=== PATIENT | male | born 2000 | race Hispanic/Latino ===

== ENCOUNTER 2022-07-06 18:16 | Emergency (ER) | payer BC, SELFPAY ==
--- NOTE | 2022-07-06 18:22 | ED.URI ---
HPI - URI/Sore Throat General Chief Complaint: Upper Respiratory Infection Stated Complaint: sore/red throat, pus in throat Time Seen by Provider: 07/06/22 18:37 Source: patient and RN notes reviewed Mode of arrival: ambulatory Limitations: no limitations History of Present Illness HPI Narrative: 21-year-old male presents with concern for sore throat that started on Thursday. He reports when the symptoms started he had a fever and chills. He reports he felt white patches on his throat. He denies runny nose, stuffy nose, headache, stomachache, nasal congestion or rhinorrhea. He has not taken any medications for his symptoms MD elicited complaint: sore throat Related Data Home Medications Medication Instructions Recorded Confirmed No Home Medications 07/06/22 07/06/22 Allergies Allergy/AdvReac Type Severity Reaction Status Date / Time No Known Allergies Allergy Verified 07/06/22 18:19 Review of Systems Review of Systems: CONSTITUTIONAL: Denies malaise, chills, sweats, or fever. EYES: Denies visual changes, redness, or discharge. ENT: Denies rhinorrhea, congestion, sinus pain, otalgia. Reports sore throat. CARDIOVASCULAR: Denies chest pain, palpitations, or edema. RESPIRATORY: Denies cough. Denies dyspnea. GASTROINTESTINAL: Denies abdominal pain, nausea, vomiting, diarrhea SKIN: Denies rash or itching. MUSCULOSKELETAL: Denies myalgia. NEUROLOGIC: Denies headache. All systems reviewed & are unremarkable except as noted in HPI and below PMFSH Comments At time of signature, agree with nursing past medical, surgical, social and family history. There is no relevant family history pertinent to the presenting complaint Exam Narrative: GENERAL: Well-appearing, well-nourished, and in no acute distress. HEAD: Normocephalic EYES: PERRLA, conjunctivae clear ENT: Nares clear, turbinates edematous and erythematous, clear discharge. Mucous membranes moist. TM pearly cai with dull light reflex bilaterally; no tragal tenderness. Oropharynx not erythematous without lesions. Tonsils not enlarged and without exudate, no drooling, no hoarseness, no trismus, uvula midline. NECK: Supple. No lymphadenopathy CHEST: Clear to auscultation, breath sounds equal. No wheezing, rhonchi, rales, or stridor. No respiratory distress, speaks in full sentences. HEART: Regular rate and rhythm. No murmur heard. SKIN: Warm, dry, no rash. NEURO: Alert and oriented x3. PSYCH: Normal mood and affect Course Course Emergency Course: Patient is aware of diagnosis, understands and agrees to treatment plan. Anticipatory guidance given. Patient agrees to follow-up as directed and is aware of reasons to seek care at the emergency department. Portions of this record may have been created with voice recognition software Level of Care: Express Care Visit Vital Signs Vital signs: Reviewed. MDM - URI/Sore Throat MDM Narrative Medical decision making narrative: Differential diagnosis considered: Valles virus, strep pharyngitis, allergic rhinitis, upper respiratory tract infection, sinusitis, rhinosinusitis, nasopharyngitis. viral pharyngitis, otitis media, otitis externa, pneumonia, bronchitis, viral cough syndrome, viral syndrome, and influenza. Exam findings show no acute concerns or changes; patient is non-toxic appearing and is in no distress. Patient is appropriate for outpatient treatment and follow-up. Lab Data Attestation: I reviewed the patient's lab results. Critical Care Time Critical Care Time Critical Care Time: No Discharge Plan Discharge Clinical Impression: Pharyngitis Patient Disposition: Home, Self-Care Condition: Stable Instructions: Pharyngitis (ED) Additional Instructions: Your rapid strep swab was negative today at [facility]. A throat culture will be sent to the laboratory for further testing. If the test is positive, you will receive a phone call within 48 hours and an appropriate antibiotic will be initi
[2022-07-06 18:33] VITALS: BP 114/92; PULSE 66; RESP 16; TEMP 36.6; O2SAT 99
[2022-07-06 18:41] VITALS: BP 114/92; PULSE 66; RESP 16; TEMP 36.6; O2SAT 99
== END 2022-07-06 18:54 | disposition home or self-care (01) ==
PROVIDERS: Emergency Provider Nurse Practitioner; PCP Registered Nurse
DX: J02.9 Acute pharyngitis, unspecified (principal)
CPT/HCPCS: 87081; 87880; 99203; G0463

== ENCOUNTER 2024-01-16 14:19 | Emergency (ER) | payer OTHER, SELFPAY ==
[2024-01-16 14:38] VITALS: BP 124/66; PULSE 61; RESP 16; TEMP 36.4; O2SAT 99
--- NOTE | 2024-01-16 15:12 | ED_ITS ---
HPI - URI/Sore Throat General Chief Complaint: Upper Respiratory Infection Stated Complaint: throat is dry /scratchy wheezing sound,cough Time Seen by Provider: 01/16/24 15:13 Source: patient, RN notes reviewed and old records reviewed Mode of arrival: ambulatory Limitations: no limitations History of Present Illness HPI Narrative: Patient has had productive cough and wheezing for about 3 weeks. Denies any hi story of asthma or bronchitis. He does report multiple sick contacts within his family over the past several weeks. He reports that he did have fever at onset of his illness, this has since resolved, but he does complain about some decreased energy. He reports cough is painful. He has been taking [id number] medications intermittently with moderate relief. He is not in any distress at this time, including respiratory distress. Related Data Allergies Allergy/AdvReac Type Severity Reaction Status Date / Time No Known Allergies Allergy Verified 01/16/24 14:33 Review of Systems Review of Systems: All systems reviewed & are unremarkable except as noted in HPI and below Constitutional: Constitutional: Reports no additional constitutional complaints ENT: Reports system reviewed and no additional complaints, except as documented Cardiovascular: Cardiovascular: Reports no additional cardiovascular complaint s Respiratory: Respiratory: Reports no additional respiratory complaints, Reports change in phlegm color, Reports chest congestion, Reports cough, Reports pain with cough and Reports wheezing Gastrointestinal: Gastrointestinal: Reports no additional gastrointestinal complaints PMFSH Comments At the time of my signature, I reviewed and agree with the nursing past medical, surgical, social, and family history. There is no relevant family history pertinent to the patient complaint. Exam Const: General: cooperative, no acute distress, alert and awake Orientation/consciousness: oriented to person, oriented to place and oriented to time HENMT: Head: normal to inspection Mouth: Yes moist mucous membranes Resp: Effort & Inspection: normal respiratory effort and able to speak in complete sentences Auscultation: clear to auscultation bilaterally, crackles bilateral at the base, no rales, no rhonchi and wheezes left lower Cardio: Palpation: normal PMI Rate: regular rate Rhythm: regular rhythm Heart sounds: S1 normal heart sound present and S2 normal heart sound present Neuro: General: oriented to person, oriented to place and oriented to time Cranial nerves: Yes CN's II-XII intact bilaterally Psych: Appearance: grossly normal Thought process: Normal thought process present Insight: Good insight present (Psych) Judgement: Good judgement present (Psych) Course Course Level of Care: Express Care Visit Vital Signs Vital signs: Vital Signs Temperature 97.5 F L 01/16/24 14:38 Pulse Rate 61 01/16/24 14:38 Respiratory Rate 16 01/16/24 14:38 Blood Pressure 124/66 01/16/24 14:38 Pulse Oximetry 99 01/16/24 14:38 Oxygen Delivery Room Air 01/16/24 14:38 Temperature 97.5 F L 01/16/24 14:38 Pulse Rate 61 01/16/24 14:38 Respiratory Rate 16 01/16/24 14:38 Blood Pressure 124/66 01/16/24 14:38 Pulse Oximetry 99 01/16/24 14:38 Oxygen Delivery Room Air 01/16/24 14:38 Reviewed MDM - URI/Sore Throat MDM Narrative Medical decision making narrative: Patient with multiple sick contacts, some with pneumonia, with 3 weeks of symptoms. Treat as community-acquired pneumonia. Follow with primary care provider. Patient is nontoxic appearing, stable for discharge home on p.o. antibiotic therapy. Discharge instructions reviewed with patient, as well as provided in writing per nursing staff. The instructions also include specific and strict return/GO TO THE ER as well as f/u information. All questions have been answered, and the patient deny any further questions with discharge and discharge plan. Some parts of this dictation were generated by voice recognition software and may contain typographical and/or grammatical inaccuracies. Differential Diagnosis Differential diagnosis: Likely upper respiratory infection, viral infection and bronchitis Medical Records Attestation: I reviewed the patient's medical records. Discharge Plan Discharge Clinical Impression: Pneumonia Qualifiers: Pneumonia type: due to unspecified organism Laterality: unspecified laterality Lung location: unspecified part of lung Qualified Code(s): J18.9 - Pneumonia, unspecified organism Patient Disposition: Home, Self-Care Condition: Stable Instructions: Antibiotic Form, Community Acquired Pneumonia (ED) Additional Instructions: Take medications as prescribed, follow with primary care provider. Emergency d epartment for new or worsened symptoms Patient Language: Qatari Prescriptions: New azithromycin 250 mg tablet See Rx Instructions .ROUTE .COMPLEX Qty: 6 0RF Rx Instructions: For 250 mg dose pack: take 500 mg today (day 1), then 250 mg for 4 days (days 2-5) albuterol sulfate [Ventolin HFA] 90 mcg/actuation HFA aerosol inhaler 2 puff inhalation QID PRN (Reason: shortness of breath or wheezing) Qty: 8.5 0RF Follow-up/Referrals: Ledy,ROGELIO Ying [Primary Care Provider] - Time of Disposition: 15:21
== END 2024-01-16 15:25 | disposition home or self-care (01) ==
PROVIDERS: Emergency Provider Nurse Practitioner Family; PCP Registered Nurse
DX: J18.9 Pneumonia, unspecified organism (principal)
CPT/HCPCS: 99213; G0463